=== PATIENT | female | born 1995 | race Caucasian/White ===

== ENCOUNTER 2021-01-08 16:43 | Emergency (ER) | payer OTHER, SELFPAY ==
--- NOTE | ~2021-01-08 | XR_ITS ---
EXAMINATION: X-RAY LUMBAR SPINE X-RAY SACRUM/COCCYX CLINICAL INFORMATION: Status post fall with lower back and coccygeal pain. COMPARISON: No similar priors. TECHNIQUE: 2 views of the lumbar spine. 3 views of the sacrum/coccyx. FINDINGS: Lumbar spine: No evidence of acute fractures or malalignment. No significant degenerative changes. Posterior elements are well maintained. Sacrum/coccyx: No evidence of acute fractures or malalignment. The sacroiliac joints are symmetric without abnormal widening. The pubic symphysis is intact. XR/XR sacrum coccyx min 2V IMPRESSION: No acute fractures or malalignment of the lumbar spine, sacrum or coccyx.
--- NOTE | ~2021-01-08 | XR_ITS ---
EXAMINATION: X-RAY LUMBAR SPINE X-RAY SACRUM/COCCYX CLINICAL INFORMATION: Status post fall with lower back and coccygeal pain. COMPARISON: No similar priors. TECHNIQUE: 2 views of the lumbar spine. 3 views of the sacrum/coccyx. FINDINGS: Lumbar spine: No evidence of acute fractures or malalignment. No significant degenerative changes. Posterior elements are well maintained. Sacrum/coccyx: No evidence of acute fractures or malalignment. The sacroiliac joints are symmetric without abnormal widening. The pubic symphysis is intact. XR/XR lumbar spine 2-3V IMPRESSION: No acute fractures or malalignment of the lumbar spine, sacrum or coccyx.
[2021-01-08 17:48] VITALS: BP 137/77; PULSE 80; RESP 18; TEMP 36.4; O2SAT 99; BMI 28.1
--- NOTE | 2021-01-08 18:53 | ED_ITS ---
HPI - Fall General Chief Complaint: Fall Stated Complaint: fell down the stairs lower back pain Time Seen by Provider: 01/08/21 18:04 Source: patient and family Mode of arrival: ambulatory Limitations: no limitations History of Present Illness MD complaint: fall Onset (ago): minute(s) (Prior to arrival) Fall from: down stairs (#) (Seven steps) Fall witnessed: no Place fall occurred: home Loss of consciousness: none Prolonged down time: no Symptoms prior to fall: none Context: tripped/slipped Location of injury: buttocks Severity: moderate Quality: aching Associated symptoms (after fall): denies Related Data Previous Rx's Medication Instructions Recorded acetaminophen 500 mg tablet 1,000 mg PO QID PRN #14 tab 01/08/21 (Tylenol Extra Strength) diazepam 10 mg tablet (Valium) 10 mg PO TID PRN #10 tab 01/08/21 docusate sodium 100 mg capsule 100 mg PO BID #14 cap 01/08/21 (Colace) Allergies Allergy/AdvReac Type Severity Reaction Status Date / Time No Known Allergies Allergy Verified 01/08/21 17:47 Review of Systems Review of Systems: Constitutional : No Fever, No Chills ENT/Mouth : No Ear Pain, No Hoarseness, No sore throat Eyes: No Eye Pain, No Swelling, No Redness, No Foreign Body Cardiovascular : No Chest Pain, No SOB Respiratory : No Cough, No Dyspnea Gastrointestinal : No Nausea, No Vomiting, No Diarrhea, No abdominal Pain Genitourinary : No Dysuria, No Hematuria Musculoskeletal : Positive coccyx/joint pain, No Myalgias, No Joint Swelling Skin : No Skin lacerations, No rash Neuro : No Weakness, No Numbness, No Paresthesias, No Loss of Consciousness, No Dizziness, No Headache Psych : No Anxiety/Panic, No Depression Heme/Lymph: no easy bruising, no Lymphadenopathy Endocrine : No Polyuria, No Polydipsia Yes all other systems are reviewed and are negative REPLACED BY [facility] Past Medical History Attestation statement: The following information was validated with the patient. Social History Social History Patient : No Physical Exam Vital Signs: Vital Signs: Last Vital Signs Temp 97.6 F 01/08/21 17:48 Pulse 80 11/08/21 17:48 Resp 18 01/08/21 17:48 BP 137/77 01/08/21 17:48 Pulse Ox 99 01/08/21 17:48 Body Mass Index 28.1 vital signs have been reviewed as normal and appeared to be correct. Blood pressure normal. Heart rate normal. Respiration rate normal. Temperature normal. Oxygen saturation normal. Appearance: Alert. Oriented X3. No acute distress. Head: Normal external exam. Normocephalic. Atraumatic. No Moss signs noted. No raccoon eyes noted Eyes: PERRLA. EOMI. Conjunctiva and sclera normal. Eyelids normal. ENT: EAC normal. TM's Normal. Pharynx normal. Uvula midline. Moist mucous membranes. No trismus noted. No drooling noted. No muffled voice noted. Neck: Normal inspection. Neck supple. FROM. No adenopathy. Thyroid Normal. No meningeal signs. No neck mass noted. CVS: Normal heart rate and rhythm. Heart sound normal. No murmurs noted. Pulses normal throughout. Respiratory: No respiratory distress. Painless inspiration. Breath sounds normal. No wheezes/rales/rhonchi noted. Chest nontender. No accessory muscle usage noted or decreased air movement noted. Abdomen: Soft and nontender. Bowel sounds normal in all 4 quadrants. No distention noted. No organomegaly noted. No visible injury noted. Back: No CVA tenderness. Full range of motion noted. No obvious deformities, or edema. Mild para-spinal muscular tenderness from lumbar region to coccyx. Full ROM in back and lower extremities. 5/5 strength hip extension/flexion, abduction, adduction. Mild Lumbar pain with hip flexion against resistance. Straight leg raise test negative on right; Straight leg raise test negative on left; Reflexes normal ankle and knee bilaterally; EHL motor strength normal bilaterally. No rashes/lesion/induration/fluctuance or signs infection noted. No ecchymosis/abrasion/lacerations noted. Skin: Skin warm and dry. Normal skin color. Normal skin turgor. No rashes/lesions/lacerations noted. Extremities: Extremities exhibit normal range of motion. Extremities nontender. Neuro: Oriented X 3. No motor deficit. No sensory deficit. Reflexes normal. Patient has a normal steady gait. Course Course Course Narrative: 19pm - 25-year-old female presenting to the ED with complaints of lower back/coccyx pain after she had a mechanical fall where she tripped and fell approximately 7 steps landing on her buttocks since then has been having pain. Reports she has not had a bowel movement due to pain. Reports pain with walking. Otherwise denies head injury or loss of consciousness or being on any blood thinners. Denies any paresthesias or any bowel or bladder dysfunction. Denies any other symptoms complaints or concerns or injuries at this time. - Will obtain x-rays of lumbar and coccyx spine provide symptomatic treatment and re-evaluate. Reevaluation(s) Reevaluation #1: X-rays negative for any acute processes. Will DC home with symptomatic treatment instructions return if any new or worsening symptoms to follow up with primary care provider. Patient understands agrees with this plan. Time: 19:11 [facility] - Fall Medical Records Attestation: I reviewed the patient's medical records. Imaging Data Lumbar/coccyx x-rays: Attestation: I personally reviewed and interpreted this imaging study as follows: Radiologist's impression: FINDINGS: Lumbar spine: No evidence of acute fractures or malalignment. No significant degenerative changes. Posterior elements are well maintained. Sacrum/coccyx: No evidence of acute fractures or malalignment. The sacroiliac joints are symmetric without abnormal widening. The pubic symphysis is intact.? XR/XR sacrum coccyx min 2V IMPRESSION: No acute fractures or malalignment of the lumbar spine, sacrum or coccyx.? Discharge Plan Discharge Clinical Impression: Fall, Coccyx sprain Patient Disposition: Home, Self-Care Instructions: Coccyx Injury (ED) Prescriptions: New acetaminophen [Tylenol Extra Strength] 500 mg tablet 1,000 mg PO QID PRN (Reason: fever or pain) Qty: 14 RF: 0 diazepam [Valium] 10 mg tablet 10 mg PO TID PRN (Reason: muscle spasm) Qty: 10 RF: 0 docusate sodium [Colace] 100 mg capsule 100 mg PO BID Qty: 14 RF: 0 Referrals: Catherine Carrizales MD [Primary Care Provider] - 2 days Stand Alone Forms: Work/School Release Print Language: Danish
[2021-01-08] MEDS: Acetaminophen 325 MG TABLET 975 MG PO (19:14)
[2021-01-08] MEDS: diazePAM 5 MG TABLET PO (19:14)
== END 2021-01-08 19:56 | disposition home or self-care (01) ==
LOC: HO.ED 19:35
PROVIDERS: Emergency Provider Internal Medicine; PCP Internal Medicine
DX: M53.3 Sacrococcygeal disorders, not elsewhere classified (principal); M54.50 Low back pain, unspecified; Z79.899 Other long term (current) drug therapy
CPT/HCPCS: 72100; 72220; 99283; 99284

== ENCOUNTER 2021-01-26 12:40 | Outpatient (REF) | payer OTHER, SELFPAY | END 2021-01-26 12:41 | disposition home or self-care (01) | LOC: HO.LAB 12:40 | PROVIDERS: PCP Internal Medicine; Visit Provider Internal Medicine | DX: Z20.822 Contact with and (suspected) exposure to COVID-19 (principal) | CPT/HCPCS: C9803; U0003; U0005 ==

== ENCOUNTER → 2022-08-14 13:59 | Outpatient (BNVA) | payer OTHER, SELFPAY | PROVIDERS: PCP Internal Medicine; Visit Provider Advanced Practice Midwife | DX: Z30.46 Encounter for surveillance of implantable subdermal contraceptive (principal); Z30.011 Encounter for initial prescription of contraceptive pills; Z30.09 Encounter for other general counseling and advice on contraception; Z32.02 Encounter for pregnancy test, result negative | CPT/HCPCS: 11983; 81025; 99212; J7307 ==